=== PATIENT | female | born 1945 | race Caucasian/White ===

== ENCOUNTER 2016-12-31 07:17 | Day surgery (SDC) | payer OTHER, BC ==
[~2016-12-31] VITALS: Ht 154.9 cm; Wt 86.2 kg
[~2016-12-31 07:17] MED LIST: ALLEGRA ALLERGY60 MG PO; ALOE VERA PO; ALOE VERA25 MG PO; CIPROFLOXACIN500 M1 PO; CORDARONE200 MG PO; COUMADIN1 MG PO; IRON325 M1 PO; ISOSORBIDE MONO30 MG PO; KEFLEX250 MG PO; LASIX40 MG PO; LEVEMIR FL100 UNIT/1 SC; LIPITOR40 MG PO; LOPRESSOR50 MG PO; LYRICA50 MG PO; MAGNESIUM400 M1 PO; NEXIUM40 MG PO; NITROSTAT0.4 MG SL; NOVOLOG PE100 UNITS/ SC; PLAVIX75 MG PO; PRESERVISION T1 EACH PO; REQUIP0.5 MG PO; ROCALTROL0.25 MCG PO; SYNTHROID75 MCG PO; TRIMETHOPRIM100 MG PO; VITAMIN B12 PO; VITAMIN B122500 MCG PO; ZETIA10 MG PO
[2016-12-31 08:26] LABS: HEMATOCRIT 32.8 % (36.0-46.0); MCH 31.4 PG (29.0-34.0); MCHC 31.1 G/DL (30.0-36.0); MCV 100.9 FL (83-99); MEAN PLAT.VOLUME 11.1 uM^3 (9.5-12.4); PLATELET COUNT 186 K/uL (156-360); RBC DIS.WIDTH-CV 19.5 % (11.8-14.6); RED BLOOD COUNT 3.25 M/uL (3.80-5.20); WHITE BLOOD COUNT 8.7 K/uL (4.1-10.2)
[2016-12-31 08:35] LABS: CHLORIDE 98 mEq/L (99-109); POTASSIUM 5.2 mEq/L (3.7-5.4); SODIUM 140 mEq/L (136-147)
[2016-12-31 08:36] LABS: GLUCOSE 129 mg/dL (70-99)
[2016-12-31 08:38] LABS: ANION GAP 14 MEQ/L (2-14)
[2016-12-31 08:40] LABS: GFR ESTIMATE (CALCULATED) 5 mL/min/
[2016-12-31 08:41] LABS: UREA NITROGEN (BUN) 48 mg/dL (9-23)
[2016-12-31 08:50] VITALS: BP 126/58
[2016-12-31 09:46] LABS: METH RESISTANT S AUREUS PCR NEGATIVE (NEGATIVE)
[2016-12-31 09:47] LABS: PROBE CHECK PASS; SPECIMEN PROCESSING CONTROL PASS
[2016-12-31 10:50] LABS: POINT-OF-CARE METER ID UU13113675
[2016-12-31 11:25] VITALS: BP 97/50
[2016-12-31 11:45] VITALS: BP 126/74
[2016-12-31 12:18] VITALS: BP 132/43
[2016-12-31 12:20] VITALS: BP 132/43
[2016-12-31 13:00] VITALS: BP 130/58
== END 2016-12-31 13:08 | disposition home or self-care (01) ==
LOC: SDC 07:17
PROVIDERS: Surgery
PROC: 0WPG33Z Removal of Infusion Device from Peritoneal Cavity, Percutaneous Approach (ICD-10-PCS; principal; 2016-12-31)
DX: Z49.01 Encounter for fitting and adjustment of extracorporeal dialysis catheter (principal); I12.0 Hypertensive chronic kidney disease with stage 5 chronic kidney disease or end stage renal disease; E11.22 Type 2 diabetes mellitus with diabetic chronic kidney disease; N18.6 End stage renal disease; Z99.2 Dependence on renal dialysis; I48.91 Unspecified atrial fibrillation; I25.10 Atherosclerotic heart disease of native coronary artery without angina pectoris; Z95.5 Presence of coronary angioplasty implant and graft; Z79.01 Long term (current) use of anticoagulants; Z88.8 Allergy status to other drugs, medicaments and biological substances; Z83.3 Family history of diabetes mellitus; Z82.49 Family history of ischemic heart disease and other diseases of the circulatory system
CPT/HCPCS: 80048; 82948; 85027; 87641; J0690; J2405